=== PATIENT | male | born 1970 ===

== ENCOUNTER 2018-05-30 19:53 | Emergency (ER) | payer SELFPAY ==
[2018-05-30 20:05] VITALS: BP 146/97
[2018-05-30] MEDS ORDERED: Albuterol/Ipratropium NEB.SOL* Albuterol 2.5 MG/Ipratropium 0.5 MG 3 ML INH ONE (20:16)
[2018-05-30] MEDS ORDERED: predniSONE TAB* 20 MG PO ONE (20:17)
[2018-05-30] MEDS ORDERED: Azithromycin TAB* 250 MG PO ONE (20:17)
--- NOTE | 2018-05-30 20:22 | UC ---
Respiratory Complaint HPI - HPI Summary HPI Summary: 48-year-old male comes in with a chief complaint of upper respiratory tract infection symptoms and asthma exacerbation for one week. Patient yellow sputum. he also has runny nose. He staring quite a bit of wheezing. No recent fevers. He's been using his albuterol quite a bit which does help but he is having to use it more frequently today. - History of Current Complaint Chief Complaint: UCRespiratory Stated Complaint: ASTHMA,CHEST PAIN Time Seen by Provider: 05/30/18 19:58 Pain Intensity: 0 - Allergies/Home Medications Allergies/Adverse Reactions: Allergies Allergy/AdvReac Type Severity Reaction Status Date / Time No Known Allergies Allergy Verified 05/30/18 20:04 Home Medications: Home Medications Albuterol inh POWDER (NF) [Proair Respiclick] 2 puff INH Q6HR 05/30/18 [History Confirmed 05/30/18] Fluticasone/Vilanterol [Breo Ellipta 200-25 Mcg INH] 1 dose INH DAILY 05/30/18 [ History Confirmed 05/30/18] Montelukast Sodium TAB* [Singulair 10 MG TAB*] 10 mg PO DAILY 05/30/18 [History Confirmed 05/30/18] PMH/Surg Hx/FS Hx/Imm Hx Previously Healthy: Yes Respiratory History: Asthma - Surgical History Surgical History: Yes - Family History Known Family History: Positive: Non-Contributory - Social History Alcohol Use: Daily Substance Use Type: None Smoking Status (MU): Heavy Every Day Tobacco Smoker Amount Used/How Often: daily/can in 2 days Review of Systems All Other Systems Reviewed And Are Negative: Yes Constitutional: Positive: Negative Skin: Positive: Negative Eyes: Positive: Negative ENT: Positive: Nasal Discharge, Sinus Congestion Respiratory: Positive: Shortness Of Breath, Cough, Other - WHEEZING Cardiovascular: Positive: Negative Gastrointestinal: Positive: Negative Motor: Positive: Negative Neurovascular: Positive: Negative Musculoskeletal: Positive: Negative Neurological: Positive: Negative Psychological: Positive: Negative Is Patient Immunocompromised?: No Physical Exam Triage Information Reviewed: Yes Appearance: No Pain Distress, Well-Nourished, Ill-Appearing - MILD Vital Signs: Initial Vital Signs Temp 98.9 F 05/30/18 19:58 Pulse 96 05/30/18 19:58 Resp 20 05/30/18 19:58 BP 146/97 05/30/18 19:58 Pulse Ox 90 05/30/18 19:58 Vital Signs Reviewed: Yes Eye Exam: Normal Eyes: Positive: Conjunctiva Clear ENT: Positive: Pharyngeal erythema, Nasal congestion, Nasal drainage, TMs normal Neck exam: Normal Neck: Positive: Supple Respiratory: Positive: No respiratory distress, No accessory muscle use, Wheezing Cardiovascular: Positive: RRR Musculoskeletal Exam: Normal Musculoskeletal: Positive: Strength Intact, ROM Intact Neurological Exam: Normal Neurological: Positive: Alert, Muscle Tone Normal Psychological Exam: Normal Psychological: Positive: Normal Response To Family, Age Appropriate Behavior Skin Exam: Normal Respiratory Course/Dx - Course Course Of Treatment: In clinic patient had a DuoNeb and albuterol in clinic with some improvement. Follow-up primary care doctor reevaluate sooner if worse or any questions or concerns. - Differential Dx/Diagnosis Provider Diagnosis: Bronchitis, Asthma Discharge - Sign-Out/Discharge Documenting (check all that apply): Patient Departure All imaging exams completed and their final reports reviewed: No Studies - Discharge Plan Condition: Stable Disposition: HOME Prescriptions: Albuterol HFA INHALER* [Ventolin HFA Inhaler*] 2 puff INH Q4H PRN #1 mdi PRN Reason: Wheezing Albuterol/Ipratropium NEB.MAY* [Duoneb (Albuterol 2.5 MG/Ipratropium 0.5 MG)] 1 neb INH Q4H #30 neb.soln Azithromycin 250 mg PO DAILY #4 tablet predniSONE TAB* [Deltasone 20 MG TAB*] 40 mg PO DAILY #10 tab Patient Education Materials: Asthma (ED), Acute Bronchitis (ED) Referrals: [facility] [Outside] Nancy Hatch MD [Medical Doctor] - Additional Instructions: FOLLOW UP WITH YOUR DOCTOR IF NOT COMPLETELY IMPROVED. GET REEVALUATED SOONER IF YOUR CONDITION WORSENS OR ANY QUESTIONS OR CONCERNS. - Billing Disposition and Condition Condition: STABLE Disposition: Home
[2018-05-30] MEDS ORDERED: Albuterol 2.5 MG/3 ML NEB.SOL* (0.083%) INH ONE (20:52)
== END 2018-05-30 21:17 | disposition home or self-care (01) ==
LOC: UCEAST 19:53
DX: J45.901 Unspecified asthma with (acute) exacerbation (principal); F17.290 Nicotine dependence, other tobacco product, uncomplicated; Z79.51 Long term (current) use of inhaled steroids
CPT/HCPCS: 99203; A9270-GY; G0463; J7512